=== PATIENT | female | born 1965 | race African-American/Black ===

== ENCOUNTER → 2017-06-04 | Day surgery (SDC) | payer BC ==
[~2017-06-04] MED LIST: BUPIVACAINE HCL 0.5% 10ML MPF VIAL INJ ONE; CEFAZOLIN SOD 2 GM/D5W 50ML 50 ML IV ONE; CLINDAMYCIN PHOS 900MG/ D5W 50 50 ML IV ONE; DEXAMETHASONE SOD PHOS INJ 4 MG/ML VIAL ONE; FENTANYL CITRATE/PF 100MCG/2 ML INJ ONE; HYDROMORPHONE 1MG/1ML INJ ONE; KETOROLAC TROMETHAMINE 30 MG/ML VIAL ONE; LEXAPRO10 MG PO; LIDOCAINE HCL 2% LOCAL INJ 5 ML SDV VIAL INJ ONE; MIDAZOLAM HCL 2 MG/2 ML VIAL ONE; NEOSTIGMINE 1 MG/ML 10ML VIAL ONE; ONDANSETRON HCL INJ 2 MG/ML VIAL ONE; PROPOFOL IV EMULSION 10 MG/ML 20 ML VIAL ONE; SEVOFLURANE INHAL SOLN 250 ML PEN BTL ONE; TRIBENZOR 40-11 EACH PO
--- NOTE | 2017-06-05 01:32 | Operative Report ---
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 Job#: [id number] ADRY
--- NOTE | 2017-06-05 01:36 | Operative Report ---
DATE OF PROCEDURE: June 04, 2017 PREOPERATIVE DIAGNOSES: 1. Painful hardware, right foot. 2. Nonunion, first metatarsocuneiform joint, right foot. POSTOPERATIVE DIAGNOSES: 1. Painful hardware, right foot. 2. Nonunion, first metatarsocuneiform joint, right foot. TITLE OF THE OPERATIONS: 1. Hardware removal, right foot. 2. Fusion, first metatarsocuneiform joint, right foot. PROCEDURE IN DETAIL: The patient was taken to the operating room in mildly sedated state and placed upon the operating room table in supine position. Following induction of general anesthetic, the right lower extremity was elevated to 60 degrees to exsanguinate before inflating the pneumatic thigh tourniquet to 350 mmHg to create hemostasis. Right lower extremity was placed upon the operation table prior to performing the following procedure. Procedure #1: Hardware removal of the right foot. A linear longitudinal incision was made across the dorsomedial aspect of the first metatarsocuneiform joint of the right foot. The incision was deepened via sharp and blunt dissection down to level of the dorsal capsular structure. Care was taken to identify and retract all vital structures encountered. There was significant hypertrophy of the tissues in that area. The bone-shaped fusion plate was noted in the dorsum of the foot, which was excised and the screws removed. A lag screw was removed as well. There were areas of nonunion within the fusion site, which were debrided, roughed and fenestrated and fixated with percutaneous 0.045 K-wire fixation. The areas having thus been further fixated and smoothed. The area was irrigated with copious amounts of sterile saline solution. Deep closure was 3-0 Vicryl, subcutaneous closure 4-0 Vicryl, and skin closure 4-0 nylon. The areas of surgery were then blocked with 0.5 Marcaine and Decadron LA. Release of the pneumatic thigh tourniquet showed a normal hyperemic flush to all digits of the right foot. The patient left the operating room with vital signs stable and in apparent satisfactory condition, having tolerated both anesthetic and procedure very well. Job#: [id number]
== END | disposition home or self-care (01) ==
LOC: OR 07:16
PROVIDERS: ATTEND Podiatrist Foot Surgery
DX: T84.84XA Pain due to internal orthopedic prosthetic devices, implants and grafts, initial encounter (principal); S92.311A Displaced fracture of first metatarsal bone, right foot, initial encounter for closed fracture; I10 Essential (primary) hypertension; F41.9 Anxiety disorder, unspecified; Y83.8 Other surgical procedures as the cause of abnormal reaction of the patient, or of later complication, without mention of misadventure at the time of the procedure; X58.XXXA Exposure to other specified factors, initial encounter; Z01.810 Encounter for preprocedural cardiovascular examination
CPT/HCPCS: 28740; 76000; 93005; C1762; J1100; J1170; J1885; J2001; J2250; J2405; J2710

== ENCOUNTER → 2017-08-27 | Day surgery (SDC) | payer BC ==
--- NOTE | 2017-08-24 13:14 | Diagnostic Imaging Report ---
PROCEDURE: Frontal and lateral views of the chest. COMPARISON: Patients [facility], , CHEST 2 VIEWS, 04/13/2016, 16:34. INDICATIONS: PRE ADMIT FINDINGS: Lines/tubes: None. Lungs: The lungs are well inflated and clear. There is no evidence of pneumonia or pulmonary edema. Pleura: There is no pleural effusion or pneumothorax. Heart and mediastinum: The heart and the mediastinum are normal. Bones: No acute bony abnormality. IMPRESSION: 1. No acute cardiopulmonary abnormalities. Ashwin Rodríguez M.D. Dictated by: Ashwin Rodríguez M.D. on 08/24/2017 at 13:14 Electronically approved by: Ashwin Rodríguez M.D. on 08/24/2017 at 13:14
[~2017-08-27] MED LIST changes: -CEFAZOLIN SOD 2 GM/D5W 50ML 50 ML IV ONE; +DESFLURANE 240 ML BTL INH ONE; +NEOMYCIN/POLYMYX/BACITR OINT 0.9 GM PKT ONE; -NEOSTIGMINE 1 MG/ML 10ML VIAL ONE; -SEVOFLURANE INHAL SOLN 250 ML PEN BTL ONE
--- OUTSIDE RECORDS SUMMARY | 2017-08-27 08:19 | XMS REPORT ---
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 Allergies, Adverse Reactions, Alerts This patient has no known allergies or adverse reactions. Medications This patient has no known medications. Results Test Description Test Time Test Comments Text Results Atomic Results Result Comments CHEST 2 VIEWS [place] [address] Patient Name: MICHAEL NG MR #: [id number] : 1965 Age/Sex: 51/F Req #: [id number] Adm Physician: Ordered by: CA GREEN DP Report #: [id number] Location: OR Room/Bed: Procedure: [id number] DX/CHEST 2 VIEWS Exam Date: 08/24/17 Exam Time: 1218 REPORT STATUS: Signed PROCEDURE: Frontal and lateral views of the chest. COMPARISON: [facility], CHEST 2 VIEWS, 2015, 16:34. INDICATIONS: PRE ADMIT FINDINGS: Lines/tubes : None. Lungs: The lungs are well inflated and clear. There is no evidence of pneumonia or pulmonary edema. Pleura: There is no pleural effusion or pneumothorax. Heart and mediastinum: The heart and the mediastinum are normal. Bones: No acute bony abnormality. IMPRESSION: 1. No acute cardiopulmonary abnormalities. Roseann Castano M.D. Dictated by: Roseann Castano M.D. on 08/24/2017 at 13: 14 Electronically approved by: Roseann Castano M.D. on 08/24/2017 at 13:14 Dictated By: ROSEANN CASTANO MD 1314 Transcribed By: ATTILA on 08/24/17 1314 COPY TO: CA GREEN DPM
--- NOTE | 2017-08-29 16:25 | Operative Report ---
DATE OF PROCEDURE: August 27, 2017 AGE: 51. LOCATION: [facility]. 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 TITLE OF OPERATION 1. First metatarsal cuneiform takedown and re-fusion of the right foot with human tissue allograft. 2. Excision of the accessory ossicle of the right foot. ANESTHESIA: General endotracheal. HEMOSTASIS: Thigh tourniquet at 350 mmHg. PROCEDURE IN DETAIL: The patient was taken to the operating room in a mildly sedated state and placed upon the operating table in supine position. Following induction of general anesthetic, the right lower extremity was elevated to 60 degrees to exsanguinate before inflating the pneumatic thigh tourniquet to 350 mmHg for hemostasis. Right lower extremity was placed upon the operating table prior to performing the following procedures: TAKEDOWN AND RE-FUSION OF THE METATARSAL CUNEIFORM JOINT OF THE RIGHT FOOT: A linear longitudinal incision was made overlying the nonunion. The area of nonunion was noted to be nyikmwy-[id number]-pjljxdl at first metatarsophalangeal joint. An osteotome and mallet was used to free up the 2 separate ends, which were not fused. A bone curette and deep tissue dissection was then performed to allow for a deliverance of the nonunion from the area. The bone was then prepped for fusion with subchondral drilling, and after copious irrigation, the subchondral tissue was drilled and dissection was performed down to the plantar aspect where a large bony and accessory ossicle was noted within the soft tissues. This was prominent and very painful to the patient. Utilizing a rongeur and delicate dissection, this area was removed. The tissues were rasped smooth in the surrounding tissue for removal of the bony prominence plantarward. Two cortical bone screws were then installed in a cross fashion at the 1st metatarsal cuneiform joint in order to complete the fusion. Human tissue allograft was used to facilitate healing in this [id number] wound and nonunion of bone. The deep tissues were then closed in layers with a combination of 3-0 Vicryl, 4-0 Vicryl, and 4-0 nylon. The areas of surrounding tissues were blocked with 0.5% Marcaine and Decadron LA. Release of the pneumatic thigh tourniquet showed a normal hyperemic flush to all digits of the right foot, and the patient left the operating room with vital signs stable in apparent satisfactory condition having tolerated both the anesthetic and procedure very well. Job#: [id number] BASHIR
== END | disposition home or self-care (01) ==
LOC: OR 08:17
PROVIDERS: ATTEND Podiatrist Foot Surgery
DX: M20.11 Hallux valgus (acquired), right foot (principal); M24.574 Contracture, right foot; I10 Essential (primary) hypertension; Z01.818 Encounter for other preprocedural examination
CPT/HCPCS: 28238; 28750; 71046; 76000; C1713 ×3; J1100; J1170; J1885; J2001; J2250; J2405